=== PATIENT | male | born 2000 | race Caucasian/White ===

== ENCOUNTER 2022-10-23 11:13 | Day surgery (SDC) | payer OTHER ==
[~2022-10-23] VITALS: Ht 182.9 cm; Wt 88.5 kg
[2022-10-23] MEDS ORDERED: NS IRRIG SOLN 1000 ML IR ONE (13:34)
[2022-10-23] MEDS ORDERED: SEVOFLURANE 15 MIN GAS INH ONE (13:34)
[2022-10-23] MEDS ORDERED: GLYCOPYRROLATE 0.2 MG/ML VIAL ONE (13:34)
[2022-10-23] MEDS ORDERED: OXYMETAZOLINE HCL 0.05% NASAL SPRAY NS ONE (13:34)
[2022-10-23] MEDS ORDERED: PROPOFOL 200MG/ 20ML VIAL (DIPRIVAN) IV ONE (13:34)
[2022-10-23] MEDS ORDERED: WATER FOR IRRIGATION,STERILE 1,000 ML IRRIG.SOLN IR ONE (13:34)
[2022-10-23] MEDS ORDERED: LR 1,000 ML IV.SOLN IV ONE (13:34)
[2022-10-23] MEDS ORDERED: NS 1000 ML IV.SOLN IV ONE (13:34)
[2022-10-23] MEDS ORDERED: LIDOCAINE/EPI 1% 1:100000 20 ML VIAL ONE (13:34)
[2022-10-23] MEDS ORDERED: ONDANSETRON HCL 4 MG/2 ML VIAL ONE (13:34)
[2022-10-23] MEDS ORDERED: ROCURONIUM BROMIDE 10 MG/ML (ZEMURON) ONE (13:34)
[2022-10-23] MEDS ORDERED: SUCCINYLCHOLINE CHLORIDE 20 MG/ML(QUELICIN) ONE (13:34)
[2022-10-23] MEDS ORDERED: EPINEPHrine HCL 1 MG/ML VIAL ONE (13:34)
[2022-10-23] MEDS ORDERED: ONDANSETRON HCL 4 MG/2 ML VIAL IVP PRN (14:45)
[2022-10-23] MEDS ORDERED: ACETAMINOPHEN 325 MG TABLET PO ONE (14:45)
[2022-10-23] MEDS ORDERED: HYDROmorphone 1 MG/ML INJ. CARTRIDGE IVP PRN (14:45)
[2022-10-23] MEDS ORDERED: METOCLOPRAMIDE HCL 10 MG/2 ML VIAL IVP PRN (14:45)
[2022-10-23 18:07] VITALS: BP_SYST 134
== END 2022-10-23 18:38 | disposition home or self-care (01) ==
LOC: SMU 11:13 → SDS 11:13
PROVIDERS: ATTEND Otolaryngology
DX: J34.2 Deviated nasal septum (principal); D38.5 Neoplasm of uncertain behavior of other respiratory organs; J34.3 Hypertrophy of nasal turbinates; J30.1 Allergic rhinitis due to pollen; R09.81 Nasal congestion; Z79.899 Other long term (current) drug therapy
CPT/HCPCS: 31255; 30520; 88304; 88305; 88311; 30140; 31256; 31240; J0171; J3490; J2405; J2704; J0330; J7120; J7030; C1726